=== PATIENT | female | born 1970 | race Asian ===

== ENCOUNTER 2024-07-27 10:00 | Emergency (ER) | payer OTHER ==
[~2024-07-27] VITALS: Ht 152.4 cm; Wt 53.8 kg
[2024-07-27] MEDS ORDERED: CYCL-394 PO (12:07)
--- NOTE | 2024-07-27 12:07 | Physician Documentation ---
History of Present Illness ~ Chief Complaint: Neck pain Stated Complaint: NECK AND SHOULDER PAIN Time Seen by MD: 11:46 HPI [age] old female presents to the ED with a complaint of chronic right neck pain. She states that she normally gets a cortisone shot and that helps she takes meloxicam and various other OTC states he has a cruise tomorrow and wants to help her pain. Denies any acute injury. denies any numbness or tingling Medication Reconciliation Allergies: Coded Allergies: No Known Allergies (Unverified , 07/27/24) Scheduled Cyclobenzaprine HCl (Cyclobenzaprine HCl), 1 TAB PO Q8H Review of Systems All Other Systems at this time: Reviewed and Negative Physical Exam Vital Signs: Temperature: 97.4, Source: Temporal, Heart Rate: 72, Respiratory Rate: 16, BP: 142/86, Pulse Oximetry: 98, Weight: 53.800 Oxygen Flow Rate: 0 Physical Exam General: Alert, no apparent distress. HEENT: PERRL, EOMI, no injection, moist mucous membranes. Neck: decreased lateral ROM Neurologic: Oriented x4. Psychiatric: Normal mood and affect. Skin: Normal color, warm and dry. No edema, no ecchymosis. Progress Results/Orders Results/Orders Completed Orders - JOHN SALAZAR NP Ketorolac Trometh 15mg/Ml Vial (Toradol (07/27/24 11:55) Hydrocodone/Apap 10/325 ([place] 10/325mg (07/27/24 11:55) Cyclobenzaprine Tablet (Flexeril Tablet) (07/27/24 12:00) Medications Received in ER Medications (Trade) Dose Ordered Sig/Vineet Route PRN Reason Start Time Stop Time Status Last Admin Dose Admin (Toradol injection) 15 mg ONCE ONCE IM 07/27/24 11:55 07/27/24 11:56 DC 07/27/24 12:21 15 MG (Flexeril tablet) 10 mg ONCE ONCE PO 07/27/24 12:00 07/27/24 12:01 DC 07/27/24 12:19 10 MG Vital Signs 07/27/24 07/27/24 07/27/24 10:32 12:21 12:29 Temp 97.4 97.9 Pulse 72 75 Resp 16 16 16 B/P (MAP) 142/86 139/83 Pulse Ox 98 99 O2 Flow Rate 0 Medical Decision Making Findings Suspecting as cervical spasm or strain going to treat patient for her symptoms and advised her to take medication as prescribed. Prescribe her 30 days of Flexeril to help with her symptoms Differential Dx:Considerations: Include: Cervical muscle spasm, Discitis, DJD, Meningitis, Thyroiditis, Torticollis, Vertebral artery dissect., Other Departure Disposition: HOME / SELF CARE / HOMELESS Impression: Primary Impression: Neck pain Additional Impressions: Torticollis Whiplash injury to neck Discharge Instructions: Cervical Sprain Referrals: NO PRIMARY CARE PROVIDER (PCP) Prescriptions Cyclobenzaprine HCl (Cyclobenzaprine HCl) 10 Mg Tablet 1 TAB PO Q8H for muscle spasms for 10 Days, #30 TAB Prov: JOHN SALAZAR NP 07/27/24 Signature Scribe Signature: f Attestation: Scribed for John Salazar Child Development Professor by John Meyer NP . 07/27/24 18:26 JOHN SALAZAR NP Jul 27, 2024 12:07
[2024-07-27] MEDS: cyclobenzaprine 10mg tablet PO ONE (12:19)
[2024-07-27] MEDS: ketorolac trometh 15mg/ml vial 15 MG/ML ML IM ONE (12:21)
[2024-07-27] MEDS: HYDROcodone/acetaminophen 10/325mg tab PO ONE (12:22)
[2024-07-27 12:29] VITALS: BP 139/83; PULSE 75; RESP 16; TEMP 97.9; O2SAT 99
== END 2024-07-27 12:32 | disposition home or self-care (01) ==
LOC: ER 10:01
DX: S13.4XXA Sprain of ligaments of cervical spine, initial encounter (principal); M43.6 Torticollis; X58.XXXA Exposure to other specified factors, initial encounter; Y93.89 Activity, other specified; Y92.89 Other specified places as the place of occurrence of the external cause; Y99.8 Other external cause status
CPT/HCPCS: 96372; 99283; J1885